=== PATIENT | female | born 1995 | race Caucasian/White ===

== ENCOUNTER 2023-08-01 10:40 | Emergency (ER) | payer OTHER, SELFPAY ==
[2023-08-01] VITALS (7 sets, daily range): BP systolic 105–127; BP diastolic 64–79; PULSE 71–109; RESP 14–21; TEMP 36.5; O2SAT 95–99; BMI 25.8
--- NOTE | 2023-08-01 10:59 | DI.US.S_ITS ---
PROCEDURE: US PELVIC COMPLETE INDICATIONS: ABDOMINAL PAIN AND BLEEDING. INTRAUTERINE DEVICE LOCATION. TECHNIQUE: Real-time scanning was performed of the pelvic organs, with image documentation. Additional endovaginal scanning was necessary due to incomplete visualization of the adnexal and endometrial structures by transabdominal scanning. COMPARISON: None. FINDINGS: Uterus: 8.1 x 5.8 x 3.8 cm. 3 mm endometrium. IUD is seen within the endometrium. Overall homogeneous echotexture. Suspected nabothian cysts are present. Ovaries: Right ovary is nonenlarged. A simple left ovarian cyst measures up to 4.2 x 3.2 cm. Left ovarian volume is 29 cc. Color Doppler and spectral flows are present Other: No pathologic free fluid. A small amount free fluid is seen at the left adnexa which may be physiologic. IMPRESSION: Enlarged left ovary with a simple cyst. Color and spectral flows are seen. The cyst predisposes of torsion, which can be intermittent. Recommend clinical follow-up. IUD is seen within the endometrium Dictated by: Sai Laboy M.D. on 08/01/2023 at 11:49 Approved by: Sai Laboy M.D. on 08/01/2023 at 11:52
--- NOTE | 2023-08-01 11:09 | ED.GENADULT ---
HPI - General Adult General Chief complaint: Abdominal Pain Stated complaint: sent by pcp couldnt find iud severe adb pain Time Seen by Provider: 08/01/23 10:42 Source: patient Mode of arrival: Ambulatory History of Present Illness HPI narrative: Patient is a 28-year-old female. Has an IUD in place. It was placed after her 3 years ago. She states she has only had mild spotting occasionally since the IUD was placed. She currently has been bleeding for the past 10 days. She had a follow-up with her primary doctor's today because of the bleeding. She was also having some left adnexal tenderness. Per the patient when they were doing the pelvic exam they could not find the IUD strings. She was sent to the emergency department for further evaluation. No urinary symptoms. No change in bowel habits. Related Data Home Medications Medication Instructions Recorded Confirmed citalopram 10 mg tablet 10 mg PO QPM 08/01/23 08/01/23 Allergies Allergy/AdvReac Type Severity Reaction Status Date / Time No Known Drug Allergies Allergy Verified 08/01/23 10:51 Review of Systems Constitutional Constitutional: Reports system reviewed and no additional complaints, except as documented Cardiovascular Cardiovascular: Reports system reviewed and no additional complaints, except as documented Respiratory Respiratory: Reports system reviewed and no additional complaints, except as documented Gastrointestinal Gastrointestinal: Reports system reviewed and no additional complaints, except as documented Genitourinary Genitourinary: Reports system reviewed and no additional complaints, except as documented Integumentary/Breasts Skin/Breast: Reports system reviewed and no additional complaints, except as documented Neurologic Neurologic: Reports system reviewed and no additional complaints, except as documented Hematologic/Lymphatic On Anticoagulants: No Patient History Social History Smoking Status: Current every day smoker Smoking Status: Current every day smoker tobacco type: vaping alcohol intake frequency: 0-2 drinks per day Substance Use Type: does not use Exam Initial Vital Signs Initial Vital Signs: Vital Signs Temperature 97.7 F 08/01/23 10:47 Pulse Rate 109 H 08/01/23 10:47 Respiratory Rate 14 08/01/23 10:47 Blood Pressure 127/77 08/01/23 10:47 Pulse Oximetry 99 08/01/23 10:47 Oxygen Delivery Method Room Air 08/01/23 10:47 HENNH Head: normal to inspection and normocephalic Resp Effort & Inspection: normal respiratory effort Auscultation: clear to auscultation bilaterally Cardio Rate: tachycardic Rhythm: regular rhythm GI Inspection: normal to inspection and non-distended Palpation: soft, No firm, No guarding and tender (Left lower quadrant/left adnexa) Back/Spine/Pelvis Back: No CVA tenderness Neuro General: patient alert, patient awake and moves all extremities Extrem General: capillary refill normal Course Orders Ordered: ED Orders 08/01/23 10:59 US pelvic complete Stat 08/01/23 11:00 Complete Blood Count AUTO DIFF Stat Comprehensive Metabolic Panel Stat Lipase Stat Ondansetron HCl (Ondansetron 4 Mg Odt) 4 mg PO NOW PRN PRN Reason: Nausea And Vomiting Ondansetron HCl (Ondansetron 4 Mg/2 Ml Inj) 4 mg IV NOW PRN PRN Reason: Nausea And Vomiting Vital Signs Vital signs: Vital Signs - 8 hr 08/01/23 10:47 08/01/23 10:55 08/01/23 10:55 Temperature 97.7 F Pulse Rate 109 H 94 H Respiratory Rate 14 Blood Pressure 127/77 124/79 Pulse Oximetry 99 98 Oxygen Delivery Method Room Air 08/01/23 11:00 08/01/23 11:00 Temperature Pulse Rate 90 Respiratory Rate Blood Pressure 122/76 Pulse Oximetry 97 Oxygen Delivery Method Medical Decision Making Lab Data Lab results reviewed: Yes I reviewed the patient's lab results. 08/01/23 11:00 08/01/23 11:00 Labs: Lab Results 08/01/23 Range/Units 11:00 WBC 4.4 L (4.5-11.0) X10^3/uL RBC 4.67 (4.0-5.2) X10^6/uL Hgb 14.9 (12.0-16.0) g/dL Hct 42.6 (36-46) % MCV 91.3 (80-100) fL MCH 31.9 (26-34) PG MCHC 35.0 (30-36) % RDW 13.4 (11.6-14.8) % Plt Count 224 (150-400) X10^3/uL Neut % (Auto) 61.2 (50-75) % Lymph % (Auto) 32.7 (25-40) % [place] % (Auto) 4.7 (3-14) % Eos % (Auto) 0.7 L (2-4) % Baso % (Auto) 0.7 (0-2) % Neut # (Auto) 2700 (3239-8046) /uL Lymph # (Auto) 1400 (4897-9336) /uL [place] # (Auto) 200 (0-900) /uL Eos # (Auto) 0 (0-450) /uL Baso # (Auto) 0 (0-100) /uL Sodium 137 (137-145) mmol/L Potassium 3.8 (3.4-5.1) mmol/L Chloride 103 (98-107) mmol/L Carbon Dioxide 27 (22-32) mmol/L BUN 10 (7-17) mg/dL Creatinine 0.64 (0.52-1.04) mg/dL Estimated GFR > 60 (>60) mL/min BUN/Creatinine Ratio 15.6 (6-22) Glucose 75 (70-100) mg/dL Calcium 9.4 (8.4-10.2) mg/dL Total Bilirubin 0.8 (0.2-1.3) mg/dL AST 33 (14-36) IU/L ALT 36 H (<35) IU/L Alkaline Phosphatase 59 (38-126) U/L Total Protein 7.9 (6.3-8.2) g/dL Albumin 4.5 (3.5-5.0) g/dL Globulin 3.4 (1.7-4.1) g/dL Albumin/Globulin Ratio 1.3 (1.0-2.8) Lipase 99 (23-300) U/L Point of Care Testing Test Results Negative Urine Dip Bedside Urine Glucose Negative Bedside Urine Bilirubin - Negative Bedside Urine Ketone - Negative Urine Specific [place] 1.010 Bedside Urine Occult Blood - Negative Bedside Urine pH 7.0 Bedside Urine Protein - Negative Bedside Urine Urobilinogen - Negative Bedside Urine Nitrite - Negative Bedside Urine Leukocytes - Negative Esterase Point of care testing: Point of Care Testing Test Results Negative Urine Dip Bedside Urine Glucose Negative Bedside Urine Bilirubin - Negative Bedside Urine Ketone - Negative Urine Specific [place] 1.010 Bedside Urine Occult Blood - Negative Bedside Urine pH 7.0 Bedside Urine Protein - Negative Bedside Urine Urobilinogen - Negative Bedside Urine Nitrite - Negative Bedside Urine Leukocytes - Negative Esterase Imaging Data US - NURSE ASSESSOR: Radiologist's Impression: PROCEDURE: US PELVIC COMPLETE INDICATIONS: ABDOMINAL PAIN AND BLEEDING. INTRAUTERINE DEVICE LOCATION. TECHNIQUE: Real-time scanning was performed of the pelvic organs, with image documentation. Additional endovaginal scanning was necessary due to incomplete visualization of the adnexal and endometrial structures by transabdominal scanning. COMPARISON: None. FINDINGS: Uterus: 8.1 x 5.8 x 3.8 cm. 3 mm endometrium. IUD is seen within the endometrium. Overall homogeneous echotexture. Suspected nabothian cysts are present. Ovaries: Right ovary is nonenlarged. A simple left ovarian cyst measures up to 4.2 x 3.2 cm. Left ovarian volume is 29 cc. Color Doppler and spectral flows are present Other: No pathologic free fluid. A small amount free fluid is seen at the left adnexa which may be physiologic. IMPRESSION: Enlarged left ovary with a simple cyst. Color and spectral flows are seen. The cyst predisposes of torsion, which can be intermittent. Recommend clinical follow-up. IUD is seen within the endometrium MDM Narrative Medical decision making narrative: Patient does have a benign external exam today. I did not do a pelvic exam. Ultrasound shows relatively large left-sided ovarian cyst but no signs of torsion. The IUD is in correct position. Her physical exam today in history is not consistent with intermittent torsion. Advised that she follow-up with her primary doctor to discuss how to remove the IUD. She was given return precautions. She expressed understanding and agreement. Discharge Plan Departure Patient Disposition: Home Clinical Impression: Ovarian cyst Instructions: Ovarian Cyst Activity Restrictions/Additional Instructions: The ultrasound today did show that the IUD is in the correct position. If you would like to have it removed he will need to follow-up with your primary care doctor. You did have a left-sided ovarian cyst. Recommend that you talk with your primary doctor about this as well. If your pain worsens please return to the emergency department for further evaluation. Prescriptions: No Action citalopram 10 mg tablet 10 mg PO QPM Stand Alone Forms: Patient Portal/API
[2023-08-01 11:15] LABS: Add Manual Diff / Slide Review NO; Basophils Absolute Auto 0 /uL (0-100); Basophils Percent Auto 0.7 % (0-2); Eosinophils Absolute Auto 0 /uL (0-450); Eosinophils Percent Auto 0.7 % (2-4); Hematocrit 42.6 % (36-46); Hemoglobin 14.9 g/dL (12.0-16.0); Lymphocytes Absolute Auto 1400 /uL (1100-4500); Lymphocytes Percent Auto 32.7 % (25-40); Mean Corpuscular Hemoglobin 31.9 PG (26-34); Mean Corpuscular Volume 91.3 fL (80-100); Monocytes Absolute Auto 200 /uL (0-900); Monocytes Percent Auto 4.7 % (3-14); Neutrophils Absolute Auto 2700 /uL (1500-7000); Neutrophils Percent Auto 61.2 % (50-75); Platelet Count 224 X10^3/uL (150-400); Red Blood Cell Count 4.67 X10^6/uL (4.0-5.2); Red Cell Distribution Width 13.4 % (11.6-14.8); White Blood Cell Count 4.4 X10^3/uL (4.5-11.0)
[2023-08-01 11:23] LABS: Alanine Aminotransferase 36 IU/L (<35); Albumin 4.5 g/dL (3.5-5.0); Albumin Globulin Ratio 1.3 (1.0-2.8); Alkaline Phosphatase 59 U/L (38-126); Aspartate Aminotransferase 33 IU/L (14-36); BUN Creatinine Ratio 15.6 (6-22); Bilirubin Total 0.8 mg/dL (0.2-1.3); Blood Urea Nitrogen 10 mg/dL (7-17); Calcium 9.4 mg/dL (8.4-10.2); Carbon Dioxide 27 mmol/L (22-32); Chloride 103 mmol/L (98-107); Estimated Glomerular Filt Rate > 60 mL/min (>60); Globulin 3.4 g/dL (1.7-4.1); Glucose 75 mg/dL (70-100); HEMOLYSIS 30 (0-50); Lipase 99 U/L (23-300); Potassium 3.8 mmol/L (3.4-5.1); Sodium 137 mmol/L (137-145); Total Protein 7.9 g/dL (6.3-8.2)
== END 2023-08-01 12:36 | disposition home or self-care (01) ==
PROVIDERS: Emergency Provider Emergency Medicine
DX: N83.202 Unspecified ovarian cyst, left side (principal); Z97.5 Presence of (intrauterine) contraceptive device
CPT/HCPCS: 36415; 76830; 76856; 80053; 81003; 81025; 83690; 85025; 93975; 99284